=== PATIENT | male | born 1955 | race Caucasian/White ===

== ENCOUNTER → 2017-12-18 17:26 | Outpatient (CLI) | payer OTHER, SELFPAY ==
--- NOTE | 2017-12-18 16:30 | LES_PTH ---
PATIENT: KARTHIKEYAN LEDBETTER LOC: [facility] U#:[id number] AGE/SX: 70/M ROOM: RE12/18/[address]: Dr. Lew Carbajal MD : 1955 BED: DIS: SPEC #: [id number] RECD: 12/18/17 17:21 STATUS: JULIANNA CRISPIN #: [id number] RAEGAN: 12/18/17 16:[address]: Lew Carbajal DEPT: SURGICAL PATHOLOGY RECD BY: Lisa Minor ENTERED: 12/21/17 15:55 SP TYPE: Lesion OTHR DR: Dr. Dudley Calderon MD Tissues: Skin of eyelid, NOS Procedures: Surgery Specimen Level IV HEADER OPERATION: Removal of lesion LLL PRE-OP DIAGNOSIS: Increase in size, bothering eye with blinking TISSUE SUBMITTED: Lesion LLL MICROSCOPIC DIAGNOSIS Left lower eyelid lesion, biopsy: Squamous papilloma. AM:gildardo 12/22/17 MICROSCOPIC DESCRIPTION Slides are reviewed. GROSS DESCRIPTION Received in fixative is one container labeled with the patient's name and designated LLL lesion. The specimen consists of a piece of yoo-white skin measuring 0.3 x 0.2 x 0.1 cm. The specimen is totally submitted in one cassette. / SJ:gildardo 12/21/17 TC:5 CPT: 68266
== END ==
PROVIDERS: Family Provider Family Medicine; PCP Family Medicine; Visit Provider Ophthalmology
DX: D23.12 Other benign neoplasm of skin of left eyelid, including canthus (principal)
CPT/HCPCS: 88305

== ENCOUNTER → 2019-05-24 15:49 | Outpatient (CLI) | payer OTHER, SELFPAY ==
[2016-10-18 23:48] VITALS: BMI 40.7
[2019-05-24 17:44] LABS: Hematocrit 44.7 % (40-54); Hemoglobin 15.1 g/dL (13.0-16.5); Mean Corp Hgb Conc 33.8 g/dL (32-36); Mean Corpuscular Hgb 30.4 pg (27.0-32.0); Mean Corpuscular Volume 89.9 fL (80-94); Mean Platelet Vol. 10.6 fl (6.2-12.0); Platelet Count 244 K/mm3 (150-450); RBC Distribution Width CV 12.5 % (11.6-14.6); RBC Distribution Width SD 41.1 fl (35.1-43.9); Red Blood Count 4.97 M/mm3 (4.6-6.2); White Blood Count 8.3 K/mm3 (4.4-11.0)
[2019-05-24 18:36] LABS: Anion Gap 6 (5-15); BUN 14 mg/dL (7-18); BUN/Creat Ratio 14.6 RATIO (10-20); Calcium,Total 9.2 mg/dL (8.5-10.1); Chloride 105 mmol/L (98-107); Cholesterol 213 mg/dL (200); Creatinine, Serum 0.96 mg/dL (0.70-1.30); EST Glomerular Filtration Rate 84 mL/min (>60); Est Glom Filt Rate - Afr Amer 102 mL/min (>60); Glucose 107 mg/dL (74-106); High Density Lipoprotein 48 mg/dL; PSA,Total - Annual Screen 1.46 ng/mL (0.00-4.00); Potassium 4.3 mmol/L (3.5-5.1); Sodium Level 142 mmol/L (136-145); Triglycerides 110 mg/dL; Very Low Density Lipoprotein 22 mg/dL (5-40)
== END ==
PROVIDERS: Family Provider Family Medicine; PCP Family Medicine; Referring Provider Family Medicine; Visit Provider Family Medicine
DX: Z00.00 Encounter for general adult medical examination without abnormal findings (principal)
CPT/HCPCS: 36415; 80048; 80061; 84153; 85027; G0103

== ENCOUNTER → 2020-10-09 09:25 | Outpatient (CLI) | payer OTHER, SELFPAY ==
[2016-10-18 23:48] VITALS: BMI 40.7
[2020-10-09 12:10] LABS: Absolute Lymphocyte Count 1.27 X10^3/uL (0.83-4.51); Absolute Neutrophil Count 4.3 X10^3/uL (2.0-7.7); Basophil# 0.04 X10^3/uL; Basophil% 0.6 % (0-1); Eosinophil# 0.18 X10^3/uL; Eosinophils% 2.9 % (0-5); Hematocrit 45.3 % (40-54); Hemoglobin 15.8 g/dL (13.0-16.5); Lymphocyte # 1.27 X10^3/ul (4.0); Lymphocyte % 20.4 % (19-41); Mean Corp Hgb Conc 34.9 g/dL (32-36); Monocyte# 0.44 X10^3/uL; Monocyte% 7.1 % (0-10); NRBC Flagged by Analyzer 0 % (0-5); Neutrophil # 4.26 X10^3/uL (2.7-7.7); Neutrophil % 68.5 % (47-70); Platelet Count 236 K/mm3 (150-450); RBC Distribution Width CV 12.5 % (11.6-14.6); RBC Distribution Width SD 41.2 fl (35.1-43.9); Red Blood Count 5.09 M/mm3 (4.6-6.2); White Blood Count 6.2 K/mm3 (4.4-11.0)
[2020-10-09 12:36] LABS: ALB/GLOB Ratio 1.3 RATIO (0.9-2.4); AST(SGOT) 15 U/L (15-37); Alanine Aminotransfer ALT/SGPT 36 U/L (16-61); Albumin, Serum 3.9 g/dL (3.2-5.0); Alkaline Phosphatase 90 U/L (45-117); Anion Gap 8 (5-15); BUN 12 mg/dL (7-18); BUN/Creat Ratio 12.7 RATIO (10-20); Calcium,Total 8.7 mg/dL (8.5-10.1); Chloride 104 mmol/L (98-107); Cholesterol 231 mg/dL (200); Creatinine, Serum 0.94 mg/dL (0.70-1.30); EST Glomerular Filtration Rate 86 mL/min (>60); Est Glom Filt Rate - Afr Amer 104 mL/min (>60); Globulin 3.1 g/dL (2.2-4.2); Glucose 134 mg/dL (74-106); High Density Lipoprotein 49 mg/dL; PSA,Total - Annual Screen 1.62 ng/mL (0.00-4.00); Potassium 3.3 mmol/L (3.5-5.1); Sodium Level 140 mmol/L (136-145); Triglycerides 147 mg/dL; Very Low Density Lipoprotein 29 mg/dL (5-40)
== END ==
PROVIDERS: PCP Family Medicine; Referring Provider Family Medicine; Visit Provider Family Medicine
DX: I10 Essential (primary) hypertension (principal); E78.00 Pure hypercholesterolemia, unspecified
CPT/HCPCS: 36415; 80053; 80061; 84153; 85025; G0103

== ENCOUNTER → 2020-11-19 14:23 | Outpatient (CLI) | payer OTHER, SELFPAY ==
[2016-10-18 23:48] VITALS: BMI 40.7
--- NOTE | 2020-11-19 14:28 | RAD_ITS ---
STUDY: X-RAY - UNILATERAL RIBS ( RIGHT ) REASON FOR EXAM: Male, 65 years old. RIB PAIN TECHNIQUE: 4 view(s) of the ribs. COMPARISON: None. FINDINGS: No acute fracture, dislocation or osseous destruction. Moderate acromioclavicular joint arthrosis. No significant soft tissue swelling. RAD/Ribs Unil 2V No CXR IMPRESSION: Ribs intact Electronically Signed: Evens Clarke DO at 9:14 EST Tel , Service support ,
== END ==
PROVIDERS: PCP Family Medicine; Referring Provider Family Medicine; Visit Provider Family Medicine
DX: R07.81 Pleurodynia (principal)
CPT/HCPCS: 71100

== ENCOUNTER 2021-04-02 12:37 | Observation (INO) | payer OTHER, SELFPAY ==
[2021-04-02] VITALS (8 sets, daily range): BP systolic 149–190; BP diastolic 64–109; PULSE 57–99; RESP 16–85; TEMP 36.2–36.9; O2SAT 96–99; BMI 39.7
--- NOTE | 2021-04-02 13:10 | US_ITS ---
STUDY: ABDOMINAL ULTRASOUND - RIGHT UPPER QUADRANT REASON FOR VISIT: Male, 65 years old postprandial right upper quadrant pain. TECHNIQUE: Ultrasound evaluation of the right upper quadrant was performed with real-time and static fernández-scale imaging. TECHNICAL QUALITY: Limited. Examination limited due to a combination of factors including obesity and bowel gas. COMPARISON: None. FINDINGS: Liver: The liver measures 16.7 cm. There is increased echogenicity consistent with fatty infiltration. The bile ducts are within normal limits. There is hepatic color flow. The direction of portal flow is hepatopetal. There is a 3.1 cm x 3.7 cm x 3.7 cm cyst in the inferior aspect of the right lobe of the liver. Gallbladder: There is a mildly distended gallbladder. The gallbladder wall measures 2 mm. There is a positive sonographic Jernigan''s sign. There is no pericholecystic fluid. There is a solitary echogenic gallstone within the gallbladder. It measures 1.4 cm x 1.3 cm x 1 cm. It is located in the neck of the gallbladder. Common Bile Duct (C.B.D.): The common bile duct measures 3.4 mm. Pancreas: There is nonvisualization of the pancreas due to overlying bowel gas. Right Kidney: Normal size of the right kidney. The right kidney measures 11.3 cm x 5.6 cm x 5.5 cm. Normal renal cortex. The right cortex measures 1.2 cm. There is no demonstrated renal mass or cyst. There is no right hydronephrosis. US/Gallbladder IMPRESSION: Fatty infiltration of the liver. 3.1 cm x 3.7 cm x 3.7 cm cyst in the inferior aspect of the right lobe liver. Solitary gallstone in the neck of the gallbladder. Electronically Signed: Per Padilla MD at 14:50 EDT , Service support ,
--- NOTE | 2021-04-02 13:11 | EDS_ITS ---
HPI HPI - GI History of Present Illness Chief Complaint: Abd Pain Informant: patient Narrative Narrative: 65-year-old male states he got up and around 0600 in the morning and ate a sausage egg biscuit from [employer]. He went into work and at 0800 developed right upper quadrant pain that radiates slightly to the back into his right shoulder. He states that he has been nauseated. He eventually left work and went home but the pain has persisted and in fact has worsened. He notes no prior abdominal surgeries. He notes he had a small bowel movement this morning. No fever. Patient reports no recent pain with eating. [facility] Medical History (Updated 04/02/21 @ 15:[address] José Miguel Bolaños DO) BPH (benign prostatic hyperplasia) Hypercholesterolemia Hypertension Home Medications ergocalciferol (vitamin D2) [Vitamin D] 50,000 unit PO Q7D 10/19/16 [History Last Taken Unknown] metoprolol succinate 100 mg PO DAILY 10/19/16 [History Last Taken Unknown] multivitamin [Daily Multiple Vitamin] 1 ea PO DAILY 10/19/16 [History Last Taken Unknown] atorvastatin 40 mg PO DAILY 04/02/21 [History Last Taken Unknown] glucos sul [id number] [Glucosamine Chondroitin] cap PO 04/02/21 [History Last Taken Unknown] tamsulosin [Flomax] 0.4 mg PO QHS 04/02/21 [History Last Taken Unknown] Allergy/AdvReac Type Severity Reaction Status Date / Time No Known Allergies Allergy Verified 04/02/21 12:40 Surgical History History of tonsillectomy Social History (Updated 04/02/21 @ 13:[address] José Miguel Bolaños DO) Smoking Status: Never smoker substance use type: does not use ROS ROS ED Constitutional Constitutional ED: Denies chills or weight loss Eyes Eyes: Denies change in vision or diplopia ENT ENT ED: Reports rhinorrhea; Denies ear pain or sore throat Cardiovascular Cardiovascular: Denies chest pain, orthopnea, palpitations or racing heartbeat Respiratory/Chest Respiratory/Chest: Denies cough, dyspnea or orthopnea Gastrointestinal Gastrointestinal: Reports abdominal pain and nausea; Denies diarrhea or vomiting Genitourinary Genitourinary ED: Denies dysuria, hematuria or urinary frequency Musculoskeletal Musculoskeletal: Denies arthralgias or myalgias Integumentary Denies abscess or rash Neurologic Neurologic: Denies headache(s) or weakness Psychiatric Psychiatric: Denies anxiety, depression, suicidal ideation or suicidal thoughts Endocrine Endocrinology: Denies polydipsia, polyphagia or polyuria Allergic/Immunologic Allergic/Immunologic ED: Denies mouth swelling, tongue swelling or urticaria EXAM Physical Exam Const Vital Signs: 04/02/21 12:39 04/02/21 14:41 Temperature 97.9 F Temperature Source Temporal Pulse Rate 91 90 Respiratory Rate 16 16 Blood Pressure 190/109 H 149/89 H Blood Pressure Mean 136 109 Pulse Ox 98 98 Oxygen Delivery Method Room Air Positive well nourished and well developed General Appearance ED: well developed HEENT Reports normocephalic, head/scalp atraumatic and moist mucous membranes Eyes PERRL and EOMs intact bilaterally Neck no lymphadenopathy, supple and no JVD Resp normal respiratory effort and clear to auscultation bilaterally Cardio regular rate, regular rhythm and no murmurs GI normal to inspection, nondistended, normoactive bowel sounds Palpation: soft, tender RUQ and guarding Back/Spine no CVA tenderness and normal ROM Extremity normal to inspection General Extremety ED: Negative for edema General Extremity: Negative for edema Neuro oriented x3 and CN's II-XII intact bilaterally Sensorium / Orientation: alert Motor Exam: strength 5/5 throughout Psych mental status grossly normal Mood & Affect: Negative for depressed or tearful Skin no rashes or lesions noted and no wounds MDM MDM MDM Narrative Medical decision making narrative: Basic blood work is normal. Glucose 157. No obstructive pattern noted. Gallbladder ultrasound reveals a large solitary gallstone in the neck of the gallbladder. Patient has had a total of 8 mg of morphine and a milligram of Dilaudid. He is still having significant pain. I contacted general surgery Dr. Sandhu. She has come to see the patient in the emergency room. We have administered Zosyn. Plan is admission. Lab Data Attestation: I reviewed the patient's lab results. Labs: Laboratory Results - last 24 hr 04/02/21 04/02/21 12:55 12:55 WBC 8.2 RBC 5.24 Hgb 15.7 Hct 46.4 MCV 88.5 MCH 30.0 MCHC 33.8 RDW Std Deviation 39.0 RDW Coeff of Ronaldo 12.0 Plt Count 224 MPV 10.8 Immature Gran % (Auto) 0.200 Neut % (Auto) 75.7 H Lymph % (Auto) 14.5 L [place] % (Auto) 6.9 Eos % (Auto) 2.0 Baso % (Auto) 0.7 Absolute Neuts (auto) 6.2 Absolute Lymphs (auto) 1.18 Nucleated RBC % 0 Sodium 139 Potassium 3.9 Chloride 105 Carbon Dioxide 31.0 Anion Gap 3 L BUN 12 Creatinine 0.98 Estim Creat Clear Calc 74.64 Est GFR (MDRD) Af Amer 99 Est GFR (MDRD) Non-Af 81 BUN/Creatinine Ratio 12.2 Glucose 157 H Calcium 9.1 Total Bilirubin 0.60 AST 17 ALT 40 Alkaline Phosphatase 121 H Total Protein 7.1 Albumin 4.0 Globulin 3.1 Albumin/Globulin Ratio 1.3 Amylase 72 Lipase 89 Radiography Diagnostic Testing: Radiology Impression Gallbladder Ultrasound 04/02/21 13:10 IMPRESSION: Fatty infiltration of the liver. 3.1 cm x 3.7 cm x 3.7 cm cyst in the inferior aspect of the right lobe liver. Solitary gallstone in the neck of the gallbladder. Electronically Signed: Per Padilla MD at 14:50 EDT , Service support , Discharge Plan Triage Chief Complaint: Abd Pain ED Provider: José Miguel Bolaños Dx/Rx/DC Orders Clinical Impression: Cholelithiasis, Biliary colic Prescriptions: No Action multivitamin [Daily Multiple] 1 EACH tablet 1 ea PO DAILY RF: 0 metoprolol succinate 100 MG tablet 100 mg PO DAILY RF: 0 ergocalciferol (vitamin D2) [Vitamin D2] 50,000 UNIT capsule 50,000 unit PO Q7D RF: 0 atorvastatin 40 mg tablet 40 mg PO DAILY RF: 0 tamsulosin [Flomax] 0.4 mg Capsule 0.4 mg PO QHS RF: 0 Glucosamine Chondroitin 550-30-1 mg Capsule PO RF: 0 Primary Care Provider: Dudley Finney Referrals: Dudley Finney MD [Primary Care Provider] - Disposition Disposition: [facility]
[2021-04-02 13:20] LABS: Absolute Lymphocyte Count 1.18 X10^3/uL (0.83-4.51); Absolute Neutrophil Count 6.2 X10^3/uL (2.0-7.7); Basophil# 0.06 X10^3/uL; Basophil% 0.7 % (0-1); Eosinophil# 0.16 X10^3/uL; Hematocrit 46.4 % (40-54); Hemoglobin 15.7 g/dL (13.0-16.5); Lymphocyte # 1.18 X10^3/ul (0.83-4.51); Lymphocyte % 14.5 % (19-41); Mean Corp Hgb Conc 33.8 g/dL (32-36); Mean Corpuscular Volume 88.5 fL (80-94); Mean Platelet Vol. 10.8 fl (6.2-12.0); Monocyte# 0.56 X10^3/uL; Monocyte% 6.9 % (0-10); NRBC Flagged by Analyzer 0 % (0-5); Neutrophil # 6.17 X10^3/uL (2.7-7.7); Neutrophil % 75.7 % (47-70); Platelet Count 224 K/mm3 (150-450); Red Blood Count 5.24 M/mm3 (4.6-6.2); White Blood Count 8.2 K/mm3 (4.4-11.0)
[2021-04-02] MEDS: Ondansetron 4 MG/2 ML Vial IV ×3 (13:20→21:26)
[2021-04-02] MEDS: Morphine 4 MG/ML Syringe IV ×2 (13:20→14:57)
[2021-04-02] MEDS: 0.9% Normal Saline 1,000 ML 1000 ML IV (13:20)
[2021-04-02 13:35] LABS: ALB/GLOB Ratio 1.3 RATIO (0.9-2.4); AST(SGOT) 17 U/L (15-37); Alanine Aminotransfer ALT/SGPT 40 U/L (16-61); Alkaline Phosphatase 121 U/L (45-117); Amylase 72 U/L (25-115); Anion Gap 3 (5-15); BUN 12 mg/dL (7-18); BUN/Creat Ratio 12.2 RATIO (10-20); Calcium,Total 9.1 mg/dL (8.5-10.1); Chloride 105 mmol/L (98-107); Creatinine, Serum 0.98 mg/dL (0.70-1.30); EST Glomerular Filtration Rate 81 mL/min (>60); Est Glom Filt Rate - Afr Amer 99 mL/min (>60); Estimated Creatinine Clearance 74.64 ml/min; Globulin 3.1 g/dL (2.2-4.2); Glucose 157 mg/dL (74-106); Lipase 89 U/L (73-393); Potassium 3.9 mmol/L (3.5-5.1); Protein, Total 7.1 g/dL (6.4-8.2); Sodium Level 139 mmol/L (136-145)
[2021-04-02] MEDS: 0.9% Normal Saline 1,000 ML 125 ML IV (15:30)
[2021-04-02] MEDS: HYDROmorphone 1 MG/ML Syringe IV ×4 (15:34→21:12)
--- NOTE | 2021-04-02 15:47 | HP.PCM.SX_ITS ---
HPI - General General Date of Admission: 04/02/21 HPI Narrative KARTHIKEYAN LEDBETTER, is a 65 M who presents for right upper quadrant since about 830 this morning. Patient ate at about 6 AM. Patient did have nausea and dry heaves. Patient had ultrasound gallbladder which showed a gallstone in the neck of the gallbladder 2 mm wall, 3.6 mm common bile duct, white blood cell count 8.2 with the starting of the left shift. [facility] Medical History (Updated 04/02/21 @ 17:22 by Velia Charles) BPH (benign prostatic hyperplasia) Depression Hypercholesterolemia Hypertension Migraines Home Medications atorvastatin 40 mg PO DAILY 04/02/21 [History Last Taken 04/01/21] cholecalciferol (vitamin D3) 25 mcg PO DAILY 04/02/21 [History Last Taken 04/02/21] glucos sul [id number] [Glucosamine Chondroitin] 1 cap PO DAILY 04/02/21 [History Last Taken 04/02/21] metoprolol tartrate 50 mg PO BID 04/02/21 [History Last Taken 04/02/21] multivitamin 1 tab PO DAILY 04/02/21 [History Last Taken 04/02/21] tamsulosin [Flomax] 0.4 mg PO QHS 04/02/21 [History Last Taken 04/01/21] Allergy/AdvReac Type Severity Reaction Status Date / Time No Known Allergies Allergy Verified 04/02/21 12:40 Surgical History History of tonsillectomy Social History (Updated 04/02/21 @ 13:[address] José Miguel Bolaños DO) Smoking Status: Never smoker substance use type: does not use Vital Signs Vital Signs Vital Signs: 04/02/21 12:39 04/02/21 14:41 Temperature 97.9 F Temperature Source Temporal Pulse Rate 91 90 Respiratory Rate 16 16 Blood Pressure 190/109 H 149/89 H Blood Pressure Mean 136 109 Pulse Ox 98 98 Oxygen Delivery Method Room Air Weight Weight: 261 lb 11.019 oz Body Mass Index (BMI) 39.7 Physical Exam Const alert, oriented x3 and no apparent distress HEENT normocephalic and head/scalp atraumatic Resp normal respiratory effort Cardio regular rate GI soft to palpation and non-distended Palpation: tender RUQ; Negative for guarding Extremity no clubbing, cyanosis or edema Neuro CN's II-XII intact bilaterally Psych mental status grossly normal Results Lab / Micro Data Result Diagrams: 04/02/21 12:55 04/02/21 12:55 Labs: Laboratory Results - last 24 hr 04/02/21 12:55: WBC 8.2, RBC 5.24, Hgb 15.7, Hct 46.4, MCV 88.5, MCH 30.0, MCHC 33.8, RDW Std Deviation 39.0, RDW Coeff of Ronaldo 12.0, Plt Count 224, MPV 10.8, Immature Gran % (Auto) 0.200, Neut % (Auto) 75.7 H, Lymph % (Auto) 14.5 L, [place] % (Auto) 6.9, Eos % (Auto) 2.0, Baso % (Auto) 0.7, Absolute Neuts (auto) 6.2, Absolute Lymphs (auto) 1.18, Nucleated RBC % 0 04/02/21 12:55: Sodium 139, Potassium 3.9, Chloride 105, Carbon Dioxide 31.0, Anion Gap 3 L, BUN 12, Creatinine 0.98, Estim Creat Clear Calc 74.64, Est GFR (MDRD) Af Amer 99, Est GFR (MDRD) Non-Af 81, BUN/Creatinine Ratio 12.2, Glucose 157 H, Calcium 9.1, Total Bilirubin 0.60, AST 17, ALT 40, Alkaline Phosphatase 121 H, Total Protein 7.1, Albumin 4.0, Globulin 3.1, Albumin/Globulin Ratio 1.3, Amylase 72, Lipase 89 Radiology Impression Gallbladder Ultrasound 04/02/21 13:10 IMPRESSION: Fatty infiltration of the liver. 3.1 cm x 3.7 cm x 3.7 cm cyst in the inferior aspect of the right lobe liver. Solitary gallstone in the neck of the gallbladder. Electronically Signed: Per Padilla MD at 14:50 EDT , Service support , Assessment & Plan Assessment/Plan (1) Acute cholecystitis: (2) Cholelithiasis: PLAN: Admit patient okay for clears today until midnight then n.p.o. after midnight plan for laparoscopic cholecystectomy tomorrow about 9 AM. Reviewed the anatomy with the patient and discussed the procedure: laparoscopic cholecystectomy with possible cholangiograms, possible open. Review risks including but not limited to bleeding, infection, hernia, bile leak, retained gallstones requiring another procedure ERCP- Endoscopic Retrograde Cholangiopancreatography, injury to another organ (bile ducts, common bile duct, small bowel, etc.) and conversion to an open procedure. All questions were answered. Coleen Sandhu M.D. Pager: [phone] [facility] [address] [place] [address] [address] [place] [address] Office: [phone] Procedure Criteria Type of Procedure Procedure Type: Elective Elective Risks - COVID COVID Risk Discussion: The surgeon/proceduralist and patient have discussed in detail the risk of exposure to and/or potential harm posed by the COVID-19 virus with having a surgery/procedure at this time versus the risk of delaying the surgery/procedure. It is not possible to know either the risk of delaying the surgery or procedure or chance of getting an infection with perfect accuracy, but a joint decision was made between the patient and the surgeon/proceduralist to proceed at this time with the scheduled surgery/procedure as indicated on the consent form.
--- NOTE | 2021-04-02 16:25 | EKG12_ITS ---
Test Reason : Blood Pressure : / mmHG Vent. Rate : 061 BPM Atrial Rate : 061 BPM P-R Int : 216 ms QRS Dur : 090 ms QT Int : 424 ms P-R-T Axes : 052 -19 052 degrees QTc Int : 426 ms Sinus rhythm with 1st degree A-V block Septal infarct , age undetermined Abnormal ECG No previous ECGs available Confirmed by MARGO CASTELLANOS, KEILA ([id number]), editorial manager JAYDEN SON ([id number]) on 04/05/2021 10:27:08 AM Referred By: [facility] Confirmed By:KEILA ARAGON MD
--- NOTE | 2021-04-02 17:25 | RAD_ITS ---
STUDY: X-RAY CHEST REASON FOR EXAM: Male, 65 years old. Preop TECHNIQUE: Single AP portable view of the chest. COMPARISON: None. FINDINGS: The lungs are clear and expanded. Scattered calcified granulomas. There is no demonstrated pleural abnormality. Normal size heart. Normal mediastinum and josh. Normal visualized pulmonary arteries. There is atherosclerotic tortuosity of the aortic arch and descending thoracic aorta. Normal visualized thoracic spine. Normal visualized ribs, clavicles, and shoulders. There is no demonstrated abnormality of the visualized soft tissue structures of the upper abdomen. RAD/Chest 1 View IMPRESSION: No acute abnormality is seen. Electronically Signed: Per Padilla MD at 22:05 EDT , Service support ,
[2021-04-02] MEDS: hydrALAZINE 20 MG/ML Vial 10 MG IV (18:11)
[2021-04-02] MEDS: 0.9% Saline Lock 10 ML Syringe IV (19:00)
[2021-04-02] MEDS: Metoprolol Tartrate 50 MG Tablet PO (19:11)
[2021-04-02] MEDS: Tamsulosin HCl 0.4 MG Capsule PO (21:50)
[2021-04-03] VITALS (20 sets, daily range): BP systolic 122–168; BP diastolic 61–103; PULSE 63–104; RESP 12–18; TEMP 36.5–37.3; O2SAT 90–100; BMI 39.9
[2021-04-03] MEDS: HYDROmorphone 1 MG/ML Syringe IV ×3 (00:17→07:48)
[2021-04-03] MEDS: 0.9% Normal Saline 1,000 ML 125 ML IV ×4 (00:23→21:18)
[2021-04-03] MEDS: Ondansetron 4 MG/2 ML Vial IV ×3 (05:07→23:22)
[2021-04-03 06:50] LABS: Absolute Lymphocyte Count 0.61 X10^3/uL (0.83-4.51); Absolute Neutrophil Count 15.3 X10^3/uL (2.0-7.7); Basophil# 0.03 X10^3/uL; Basophil% 0.2 % (0-1); Hematocrit 45.6 % (40-54); Hemoglobin 15.5 g/dL (13.0-16.5); Lymphocyte # 0.61 X10^3/ul (0.83-4.51); Lymphocyte % 3.5 % (19-41); Mean Corpuscular Hgb 30.5 pg (27.0-32.0); Mean Corpuscular Volume 89.6 fL (80-94); Mean Platelet Vol. 10.5 fl (6.2-12.0); Monocyte# 1.15 X10^3/uL; Monocyte% 6.7 % (0-10); NRBC Flagged by Analyzer 0 % (0-5); Neutrophil # 15.33 X10^3/uL (2.7-7.7); Neutrophil % 89.1 % (47-70); Platelet Count 215 K/mm3 (150-450); RBC Distribution Width CV 12.2 % (11.6-14.6); RBC Distribution Width SD 40.6 fl (35.1-43.9); Red Blood Count 5.09 M/mm3 (4.6-6.2); White Blood Count 17.2 K/mm3 (4.4-11.0)
[2021-04-03 07:10] LABS: Anion Gap 8 (5-15); BUN 9 mg/dL (7-18); BUN/Creat Ratio 10.3 RATIO (10-20); Calcium,Total 8.4 mg/dL (8.5-10.1); Chloride 102 mmol/L (98-107); Creatinine, Serum 0.88 mg/dL (0.70-1.30); EST Glomerular Filtration Rate 93 mL/min (>60); Est Glom Filt Rate - Afr Amer 113 mL/min (>60); Estimated Creatinine Clearance 83.13 ml/min; Glucose 185 mg/dL (74-106); Potassium 3.8 mmol/L (3.5-5.1); Sodium Level 138 mmol/L (136-145)
--- NOTE | 2021-04-03 07:20 | PCM.PN.SRG ---
Subjective Subjective Patient's status of right upper quadrant pain controlled with pain meds. Patient white blood count up to 17.2. Complains of migraine this morning. Patient on IV Zosyn Objective Data Objective Data Vital Signs: Vital Signs Temp Pulse Resp BP Pulse Ox 98.8 F 104 H 18 159/103 H 98 04/03/21 03:00 04/03/21 03:00 04/03/21 03:00 04/03/21 03:00 04/03/21 03:00 Oxygen Delivery Method Room Air Weight: 262 lb 9.129 oz Body Mass Index (BMI) 39.9 Intake & Output: Intake and Output for Last 24 Hours 04/01/21 04/02/21 04/03/21 23:59 23:59 23:59 Intake Total 2160 / 2360 850 / 850 Output Total 200 / 200 Balance 2160 / 2360 650 / 650 Lab / Micro Data Result Diagrams: 04/03/21 06:11 04/03/21 06:11 Labs: Laboratory Results - last 24 hr 04/02/21 12:55: WBC 8.2, RBC 5.24, Hgb 15.7, Hct 46.4, MCV 88.5, MCH 30.0, MCHC 33.8, RDW Std Deviation 39.0, RDW Coeff of Ronaldo 12.0, Plt Count 224, MPV 10.8, Immature Gran % (Auto) 0.200, Neut % (Auto) 75.7 H, Lymph % (Auto) 14.5 L, [place] % (Auto) 6.9, Eos % (Auto) 2.0, Baso % (Auto) 0.7, Absolute Neuts (auto) 6.2, Absolute Lymphs (auto) 1.18, Nucleated RBC % 0 04/02/21 12:55: Sodium 139, Potassium 3.9, Chloride 105, Carbon Dioxide 31.0, Anion Gap 3 L, BUN 12, Creatinine 0.98, Estim Creat Clear Calc 74.64, Est GFR (MDRD) Af Amer 99, Est GFR (MDRD) Non-Af 81, BUN/Creatinine Ratio 12.2, Glucose 157 H, Calcium 9.1, Total Bilirubin 0.60, AST 17, ALT 40, Alkaline Phosphatase 121 H, Total Protein 7.1, Albumin 4.0, Globulin 3.1, Albumin/Globulin Ratio 1.3, Amylase 72, Lipase 89 07/21/21 06:11: WBC 17.2 H, RBC 5.09, Hgb 15.5, Hct 45.6, MCV 89.6, MCH 30.5, MCHC 34.0, RDW Std Deviation 40.6, RDW Coeff of Ronaldo 12.2, Plt Count 215, MPV 10.5, Immature Gran % (Auto) 0.500, Neut % (Auto) 89.1 H, Lymph % (Auto) 3.5 L, [place] % (Auto) 6.7, Eos % (Auto) 0.0, Baso % (Auto) 0.2, Absolute Neuts (auto) 15.3 H, Absolute Lymphs (auto) 0.61 L, Nucleated RBC % 0 04/03/21 06:11: Sodium 138, Potassium 3.8, Chloride 102, Carbon Dioxide 28.0, Anion Gap 8, BUN 9, Creatinine 0.88, Estim Creat Clear Calc 83.13, Est GFR (MDRD) Af Amer 113, Est GFR (MDRD) Non-Af 93, BUN/Creatinine Ratio 10.3, Glucose 185 H, Calcium 8.4 L Radiography Diagnostic Testing: Radiology Impression Gallbladder Ultrasound 04/02/21 13:10 IMPRESSION: Fatty infiltration of the liver. 3.1 cm x 3.7 cm x 3.7 cm cyst in the inferior aspect of the right lobe liver. Solitary gallstone in the neck of the gallbladder. Electronically Signed: Per Padilla MD at 14:50 EDT , Service support , Chest X-Ray 04/02/21 17:25 IMPRESSION: No acute abnormality is seen. Electronically Signed: Per Padilla MD at 22:05 EDT , Service support , Physical Exam Resp normal respiratory effort Cardio regular rate GI GI Narrative: Abdomen: Soft, nondistended, tender in the right upper quadrant, equivocal rebound Assessment & Plan Assessment/Plan (1) Acute cholecystitis: (2) Cholelithiasis: PLAN: laparoscopic cholecystectomy scheduled for today at 9 AM Coleen Sandhu M.D. Pager: [phone] [facility] [address] [place] [address], [facility], [address] [place] [address] Office: [phone]
[2021-04-03] MEDS: Acetaminophen 325 MG Tablet 650 MG PO ×2 (07:24→17:06)
[2021-04-03] MEDS: hydrALAZINE 20 MG/ML Vial 10 MG IV ×2 (07:48→17:15)
[2021-04-03] MEDS: 0.9% Saline Lock 10 ML Syringe IV ×4 (07:49→23:26)
[2021-04-03] MEDS: proCHLORPERazine 10 MG/2 ML Vial IV (07:54)
--- NOTE | 2021-04-03 08:03 | NURSING ---
PT C/O NAUSEA - TOO EARLY FOR PRN ZOFRAN. DR MAN NOTIFIED NEW ORDER RECEIVED.
--- NOTE | 2021-04-03 08:07 | NURSING ---
PT TO OR VIA BED
--- NOTE | 2021-04-03 09:00 | GALL_PTH ---
PATIENT: KARTHIKEYAN LEDBETTER LOC: [facility] U#:[id number] AGE/SX: 65/M ROOM: AL313 RE04/02/[address]: Dr. Coleen Sandhu MD : 1955 BED: 1 DIS: 04/04/2021 SPEC #: [id number] RECD: 04/03/21 11:45 STATUS: JULIANNA ROA #: [id number] RAEGAN: 04/03/21 09:[address]: Coleen Sandhu DEPT: SURGICAL PATHOLOGY RECD BY: Abigail Dougherty ENTERED: 04/03/21 12:13 SP TYPE: JAZMINE PARKER DR: Dr. Dudley Finney MD Tissues: Gallbladder, NOS Procedures: Surgery Specimen Level III HEADER OPERATION: Laparoscopic cholecystectomy with IOC PRE-OP DIAGNOSIS: Acute cholecystitis, cholelithiasis TISSUE SUBMITTED: Gallbladder MICROSCOPIC DIAGNOSIS Gallbladder, cholecystectomy: Cholesterolosis, chronic cholecystitis with focal acute cholecystitis and cholelithiasis. Benign pericystic lymph node. AM:gildardo 04/04/2021 MICROSCOPIC DESCRIPTION Slides are reviewed. GROSS DESCRIPTION Received is one container labeled with the patient's name and designated gallbladder. The specimen consists of a gallbladder measuring 8.5 cm in length and up to 4 cm in diameter. The external surface is pink-yoo, smooth and glistening for the most part. Focally it is granular, hemorrhagic and contains cautery artifact. The gallbladder contains hemorrhagic bile and one ovoid, brownish-black stone measuring 2 x 1.5 x 1.4 cm. The mucosa is bile-stained and without any mass lesions. The gallbladder wall measures up to 0.3 cm in thickness. Close to cystic duct an ovoid nodule is noted, possible lymph node, measuring 1 cm in greatest dimension. [employer] sections from the gallbladder and the cystic duct including the nodule, a possible lymph node, are submitted in one cassette. The nodule is submitted in entirety. / SJ:gildardo 04/03/21 TC:2 CPT: [id number]
--- NOTE | 2021-04-03 09:00 | RAD_ITS ---
STUDY: INTRAOPERATIVE CHOLANGIOGRAM. REASON FOR EXAM: Male, 65 years old. Cholecystectomy. FLUOROSCOPY TIME (if supplied): ( 13.3 seconds. ) minutes/seconds. A cine Loop of 13 images was submitted. TECHNIQUE: An intraoperative cholangiogram was performed by the surgeon. Imaging was submitted. COMPARISON: None. FINDINGS: The visualized intrahepatic biliary ducts are unremarkable. The common bile duct is not dilated. No intraluminal filling defect is seen. There is free flow of contrast into the duodenum. RAD/Cholangiogram/ O R,Initial IMPRESSION: Unremarkable intraoperative Cholangiogram. Electronically Signed: Per Padilla MD at 10:14 EDT , Service support ,
--- NOTE | 2021-04-03 10:25 | PCM.OPRPT ---
Report of Operation Date of Procedure: 04/03/21 Pre-Operative Diagnosis: Acute cholecystitis Post-Operative Diagnosis: Same Surgery/Procedure Performed:: Laparoscopic cholecystectomy with cholangiograms Surgeon: Coleen Sandhu financial analyst intern: Nano Rivera Type of Anesthesia: General/Supplemental Anesthesiologist: Mathieu Membreno Special Medications: Zosyn 3.375 g IV scheduled every 8 Specimen's removed: Gallbladder Estimated Blood Loss (mL): 20 cc Fluids Replaced: Per anesthesia Description of Procedure: Indications this is a 65 year-old male who developed abdominal pain/nausea/vomiting and on workup was found to have cholelithiasis, acute cholecystitis with a normal common bile duct. Laparoscopic cholecystectomy was elected. Description procedure: The patient was placed on operating table in supine position. General Anesthesia was induced. A timeout was completed verifying correct patient, procedure, site, position and special equipment prior to beginning procedure. The abdomen was prepped and draped in usual sterile fashion. An incision was made in the natural skin line above the umbilicus. The fascia was elevated and incised. The peritoneum was elevated and incised. Entry into the peritoneum was confirmed visually and no bowel was noted in the vicinity of the incision. Hoffman trocar was placed. The abdomen was insufflated with carbon dioxide to a pressure of 12-15 mmHg. Patient tolerated insufflation well. The laparoscope was then inserted and abdomen inspected. No injuries from initial trocar placement were noted. Additional trochars were then inserted in the following locations 5 mm trocar in the epigastrium and 2 more 5 mm trochars along the right costal margin. The abdomen was inspected gallbladder is noted to be inflamed and erythematous. The table is placed in reverse Trendelenburg position with the right side up. The gallbladder was inflamed and tense, aspiration needle was used to be able to grasp the dome of the gallbladder. The dome of the gallbladder was grasped with atraumatic grasper passed through the lateral port and retracted over the dome of the liver. Infundibulum was then grasped with atraumatic grasper through the midclavicular port and retracted to the right lower quadrant. This maneuver exposed Calot's triangle. The peritoneum overlying the gallbladder infundibulum was then incised and cystic duct and artery identified and circumferentially dissected. Canas catheter was used for cholangiograms. The cholangiogram showed good filling of the common bile duct into the duodenum with no filling defects, good filling of the right and left bile ducts as well. The cystic duct and artery were then doubly clipped and divided close to the gallbladder. The gallbladder then dissected from its peritoneal attachments by electrocautery. Hemostasis was checked and the gallbladder and contained stones were removed using the endoscopic retrieval bag through the umbilical port. The gallbladder is passed off table as specimen. The gallbladder fossa was copiously irrigated with saline and hemostasis obtained. There is no evidence of bleeding from the gallbladder fossa or cystic artery leakage of bile from the cystic duct stump. Secondary trochars removed under direct vision. No bleeding was noted the trocar sites. The laparoscope was withdrawn and umbilical trocar removed. The abdomen was allowed to collapse. The fascia of the 12 mm trocar was closed with a [id number] 0 Vicryl suture. The skin was closed with sutures of 4-0 Monocryl and Steri-Strips. The orogastric tube was removed and the patient was extubated. The patient tolerated procedure well and was taken to the postanesthesia care unit in stable condition. Complications None
--- NOTE | 2021-04-03 10:28 | EX.PCM.DISCH ---
Discharge Instructions Diet Discharge Diet: Light diet - advance as tolerated Activity Discharge Activity: May Not Drive (while taking narcotic pain medications.) May shower in (days): 1 Lifting Restrictions: no lifting >20 lbs x 2 wks, no strenuous exercise for 4 wks Dressing / Incision Call your doctor if your incision/area has: Continuous Slow Oozing, Sudden Increased Bleeding, Increased Pain/ Swelling, Increased Redness, Foul Smelling Discharge and Swelling at the incision site Call your doctor if you observe: Fever of 101 or Higher Remove Dressing in: 2 days Cleanse incision/area with: Soap & Water Additional Dressing/Incision Instructions:: Steri-Strips will fall off in 7 to 10 days, if they do not fall off okay to remove after 10 days. Follow Up Care Please Follow Up With: Coleen Sandhu MD When: Call the office for a follow-up appointment 2 weeks; after 5 PM and on the weekends call [phone] with any concerns. Test Results: Test results from this visit will be discussed in further detail at your follow-up appointment, if applicable. Discharge Plan Admission Admit Date/Time: 04/02/21 16:23 Attending Provider: Coleen Sandhu Primary Care Provider: Dudley Finney Discharge Orders/Prescriptions Prescriptions: New oxycodone-acetaminophen [Endocet] 5-325 mg tablet 1 - 2 tab PO Q6H PRN (Reason: pain) 4 Days Qty: 20 RF: 0 Continued atorvastatin 40 mg tablet 40 mg PO DAILY RF: 0 tamsulosin [Flomax] 0.4 mg Capsule 0.4 mg PO QHS RF: 0 Glucosamine Chondroitin 550-30-1 mg Capsule 1 cap PO DAILY RF: 0 multivitamin Tablet 1 tab PO DAILY RF: 0 metoprolol tartrate 50 mg tablet 50 mg PO BID RF: 0 cholecalciferol (vitamin D3) 25 mcg (1,000 unit) Capsule 25 mcg PO DAILY RF: 0 Referrals / Follow Up: Dudley Finney MD [Primary Care Provider] - Disposition Disposition (needs filled in before D/C Order can be placed): Home, Self Care
[2021-04-03] MEDS: Bupivacaine Mpf 0.5% 30 ML VIAL (10:29)
[2021-04-03] MEDS: Lactated Ringers 1,000 ML 100 ML IV (10:57)
--- NOTE | 2021-04-03 12:12 | PHA.DC.MC ---
Pharmacy Service has performed discharge medication reconciliation and counseling for this patient. 1. OXYCODONE/ACETAMINOPHEN 5/325MG 1-2T PO Q6H PRN PAIN The patient's discharge medication list was reviewed for discrepancies and discrepancies were resolved. Home Medications Glucosamine Chondroitin 1 cap PO DAILY 04/02/21 atorvastatin 40 mg PO DAILY 04/02/21 cholecalciferol (vitamin D3) 25 mcg PO DAILY 04/02/21 metoprolol tartrate 50 mg PO BID 04/02/21 multivitamin 1 tab PO DAILY 04/02/21 tamsulosin [Flomax] 0.4 mg PO QHS 04/02/21 oxycodone-acetaminophen [Endocet] 1 - 2 tab PO Q6H PRN 4 Days #20 tab 04/03/21 The patient was counseled on the following discharge medications and changes in medications for homegoing were reviewed. The Reason for Use, instructions for use, and potential side effects were reviewed for all new medications. The patient's questions regarding all of their medications were answered. The patient was able to verbally demonstrate an understanding of their discharge medications.
[2021-04-03] MEDS: Metoprolol Tartrate 50 MG Tablet PO ×2 (15:40→23:16)
[2021-04-03] MEDS: oxyCODONE 5 MG Tablet PO (17:06)
--- NOTE | 2021-04-03 18:55 | NURSING ---
PT C/O VERY BAD HEADACHE, NAUSEA. BP ELEVATED. PT STATES NOT FEELING WELL ENOUGH TO GO HOME TONIGHT. DR MAN NOTIFIED & ORDERS RECEIVED.
[2021-04-03] MEDS: Aspirin 325 MG Tablet PO (23:13)
[2021-04-03] MEDS: Caffeine 200 MG Tablet 400 MG PO (23:13)
[2021-04-03] MEDS: Tamsulosin HCl 0.4 MG Capsule PO (23:16)
[2021-04-04 02:02] VITALS: BP 129/77; PULSE 66; RESP 16; TEMP 36.9; O2SAT 92
[2021-04-04 04:37] VITALS: BP 160/99; PULSE 64; RESP 18; TEMP 36.9; O2SAT 94
[2021-04-04] MEDS: 0.9% Normal Saline 1,000 ML 125 ML IV (05:02)
--- NOTE | 2021-04-04 07:54 | PCM.PN.SRG ---
Subjective Subjective Patient was quite groggy still had migraine after surgery and had some nausea. Patient's migraine has resolved with the caffeine/aspirin. Patient did order a diet for this morning and is feeling better. Patient's previous right upper quadrant pain has resolved. Patient denies abdominal pain at the incisions. Objective Data Objective Data Vital Signs: Vital Signs Temp Pulse Resp BP Pulse Ox 98.5 F 64 18 160/99 H 94 04/04/21 04:37 04/04/21 04:37 04/04/21 04:37 04/04/21 04:37 04/04/21 04:37 Oxygen Flow Rate (L/min) 2 Oxygen Delivery Method Room Air Weight: 262 lb 9.129 oz Body Mass Index (BMI) 39.9 Intake & Output: Intake and Output for Last 24 Hours 04/02/21 04/03/21 04/04/21 23:59 23:59 23:59 Intake Total 2160 / 2360 4180 / 4680 1516.67 / 1516.67 Output Total 350 / 350 Balance 2160 / 2360 3830 / 4330 1516.67 / 1516.67 Lab / Micro Data Result Diagrams: 04/03/21 06:11 04/03/21 06:11 Radiography Diagnostic Testing: Radiology Impression Cholangiogram 04/03/21 09:00 IMPRESSION: Unremarkable intraoperative Cholangiogram. Electronically Signed: Per Padilla MD at 10:14 EDT , Service support , Physical Exam Resp normal respiratory effort Cardio regular rate GI GI Narrative: Abdomen: Soft, nondistended, tender near incision's dressed clean dry and intact, no peritoneal signs Assessment & Plan Assessment/Plan (1) S/P laparoscopic cholecystectomy: PLAN: Patient is doing better this morning. If he is able to tolerate diet pain continues to be controlled okay to DC home.
[2021-04-04 08:28] VITALS: BP 163/91; PULSE 67; RESP 18; TEMP 37
[2021-04-04 08:50] VITALS: PULSE 67
[2021-04-04] MEDS: Metoprolol Tartrate 50 MG Tablet PO (08:50)
--- NOTE | 2021-04-04 10:04 | NURSING ---
pt refused hygiene care because he was getting discharged same day
--- NOTE | 2021-04-04 11:14 | NURSING ---
This RN has reviewed SN charting
== END 2021-04-04 09:50 | disposition home or self-care (01) ==
LOC: ED 15:29 → MS3 16:22
PROVIDERS: Admitting Provider Surgery; Emergency Provider Emergency Medicine; PCP Family Medicine; Visit Provider Surgery
PROC: (CPT 47610; principal; 2021-04-03 08:40)
DX: K80.12 Calculus of gallbladder with acute and chronic cholecystitis without obstruction (principal); G47.30 Sleep apnea, unspecified; Z79.899 Other long term (current) drug therapy; N40.0 Benign prostatic hyperplasia without lower urinary tract symptoms; I10 Essential (primary) hypertension; E78.00 Pure hypercholesterolemia, unspecified; G43.909 Migraine, unspecified, not intractable, without status migrainosus
CPT/HCPCS: 01922; 47563; 36415; 71045; 74300; 76000; 76705; 80048; 80053; 82150; 83690; 85025; 88304; 93005; 96361; 96365; 96366; 96367; 96375; 96376; 99218; 99251; 99284; J7030; J7050; J7120; A4216; G0378; G0463; J2405

== ENCOUNTER → 2021-05-01 07:27 | Outpatient (CLI) | payer OTHER, SELFPAY ==
[2021-04-03 08:04] VITALS: BMI 39.9
[2021-05-01 10:24] LABS: Hematocrit 44.3 % (40-54); Hemoglobin 15.2 g/dL (13.0-16.5); Mean Corp Hgb Conc 34.3 g/dL (32-36); Mean Corpuscular Hgb 30.6 pg (27.0-32.0); Mean Corpuscular Volume 89.3 fL (80-94); Mean Platelet Vol. 11.1 fl (6.2-12.0); Platelet Count 237 K/mm3 (150-450); RBC Distribution Width CV 12.3 % (11.6-14.6); RBC Distribution Width SD 40.5 fl (35.1-43.9); Red Blood Count 4.96 M/mm3 (4.6-6.2); White Blood Count 6.2 K/mm3 (4.4-11.0)
[2021-05-01 10:51] LABS: ALB/GLOB Ratio 1.3 RATIO (0.9-2.4); AST(SGOT) 26 U/L (15-37); Alanine Aminotransfer ALT/SGPT 57 U/L (16-61); Albumin, Serum 3.9 g/dL (3.2-5.0); Alkaline Phosphatase 100 U/L (45-117); Anion Gap 7 (5-15); BUN 14 mg/dL (7-18); BUN/Creat Ratio 15.1 RATIO (10-20); Calcium,Total 8.9 mg/dL (8.5-10.1); Chloride 104 mmol/L (98-107); Cholesterol 132 mg/dL (200); Creatinine, Serum 0.92 mg/dL (0.70-1.30); EST Glomerular Filtration Rate 88 mL/min (>60); Est Glom Filt Rate - Afr Amer 106 mL/min (>60); Glucose 161 mg/dL (74-106); High Density Lipoprotein 47 mg/dL; Potassium 3.5 mmol/L (3.5-5.1); Protein, Total 6.9 g/dL (6.4-8.2); Sodium Level 141 mmol/L (136-145); Triglycerides 104 mg/dL; Very Low Density Lipoprotein 21 mg/dL (5-40)
[2021-05-01 10:53] LABS: Hemoglobin A1c 6.5 % (3.8-5.6)
== END ==
PROVIDERS: PCP Family Medicine; Referring Provider Family Medicine; Visit Provider Family Medicine
DX: I10 Essential (primary) hypertension (principal); R73.01 Impaired fasting glucose; E78.00 Pure hypercholesterolemia, unspecified
CPT/HCPCS: 36415; 80053; 80061; 83036; 85027

== ENCOUNTER 2021-12-19 05:58 | Outpatient (CLI) | payer OTHER, SELFPAY ==
--- NOTE | 2021-12-19 09:45 | STRESSREP_ITS ---
Stress Test Report Date: 12-19-2021 Procedure: Pharmacologic stress nuclear imaging study Indications: Chest pain Consent: Per the patient Procedure: The patient underwent pharmacologic (Regadenoson 0.4mg ) evaluation with a peak heart rate of 99 beats per minute (63%predicted maximal heart rate) and a peak blood pressure of 182/110 mmHg. The baseline ECG demonstrated sinus rhythm; poor R wave progression. The peak pharmacologic ECG demonstrated no obvious ECG changes. There were no cardiac dysrhythmias pretest, during pharmacologic infusion, or recovery. There was no complaint of chest discomfort during pharmacologic infusion or recovery. The examination was discontinued secondary to completion of protocol. Impression: 1. Pharmacologic (Regadenoson) evaluation 2. Peak pharmacologic ECG with no obvious ECG changes. 3. There were no cardiac dysrhythmias pretest, during pharmacologic infusion, or recovery. 4. Nuclear images pending Myocardial perfusion imaging study: Technique: The patient was injected with 15.0 millicuries of technetium 99m Cardiolite and subsequently rest SPECT Cardiolite nuclear imaging was obtained in the ho rizontal long, vertical long, and short axis views. The patient underwent pharmacologic (Regadenoson) evaluation with a peak heart rate of 99 beats per minute (63% percent predicted maximal heart rate) and a peak blood pressure of 182/110 mmHg. The patient was injected with 45.0 millicuries of technetium 99m Cardiolite and subsequently stress SPECT Cardiolite nuclear imaging was obtained in the horizontal long, vertical long, and short axis views. A gated Cardiolite study at peak stress was obtained. Interpretation: Rest and stress SPECT Cardiolite nuclear imaging status post realignment, n ormalization, and attenuation correction demonstrate relative uniform tracer uptake and myocardial perfusion appearing within normal limits. There is end systolic thickening and brightening. The gated Cardiolite study demonstrates myocardial thickening and inward wall motion. The reported LVEF is 62%. Impression: 1. Rest and stress SPECT Cardiolite nuclear imaging demonstrate relative unifor m tracer uptake and myocardial perfusion appearing within normal limits. 2. The gated Cardiolite study reports an LVEF of 62%. This note was generated with [email or web address] software. It may contain incorrect words, spelling, and punctuation that were not noted in checking the note before signing.
== END 2021-12-19 23:59 | disposition home or self-care (01) ==
LOC: CVS 06:01
PROVIDERS: PCP Family Medicine; Referring Provider Family Medicine; Visit Provider Family Medicine
DX: R07.9 Chest pain, unspecified (principal)
CPT/HCPCS: 78452; 93017; A9500; A4216; J2785

== ENCOUNTER → 2022-01-13 | Outpatient (CLI) | payer OTHER, SELFPAY | END | disposition home or self-care (01) | PROVIDERS: PCP Family Medicine; Visit Provider Nurse Practitioner Acute Care | DX: G47.33 Obstructive sleep apnea (adult) (pediatric) (principal) | CPT/HCPCS: 95811 ==

== ENCOUNTER → 2022-02-14 | Outpatient (CLI) | payer OTHER, SELFPAY ==
[2022-02-14 16:26] LABS: Anion Gap 5 (5-15); BUN 14 mg/dL (7-18); BUN/Creat Ratio 14.2 RATIO (10-20); Calcium,Total 9.3 mg/dL (8.5-10.1); Chloride 105 mmol/L (98-107); Creatinine, Serum 0.99 mg/dL (0.70-1.30); EST Glomerular Filtration Rate 81 mL/min (>60); Est Glom Filt Rate - Afr Amer 98 mL/min (>60); Glucose 158 mg/dL (74-106); Magnesium 2.3 mg/dL (1.6-2.6); Potassium 3.7 mmol/L (3.5-5.1); Sodium Level 140 mmol/L (136-145); Thyroid Stim Hormone (TSH) 0.66 uIU/mL (0.358-3.74)
== END | disposition home or self-care (01) ==
LOC: LAB 14:33
PROVIDERS: PCP Family Medicine; Visit Provider Internal Medicine Cardiovascular Disease
DX: I10 Essential (primary) hypertension (principal); R07.9 Chest pain, unspecified; E78.00 Pure hypercholesterolemia, unspecified
CPT/HCPCS: 36415; 80048; 83735; 84443

== ENCOUNTER → 2022-03-31 | Outpatient (CLI) | payer OTHER, SELFPAY ==
--- NOTE | 2022-03-31 06:44 | ECHOCS_ITS ---
Reason For Study: HTN Procedure This was a 2D Doppler, Color Flow transthoracic echocardiogram. The study was technically difficult. Exam performed in department. Left Ventricle Normal LV size. Mild concentric left ventricular hypertrophy. Left ventricular systolic function is normal. The estimated ejection fraction is 60 %. Stage 2 diastolic dysfunction. No regional wall motion abnormalities noted. Right Ventricle Normal RV size. Normal systolic function. Atria The left atrium is mildly enlarged. Normal right atrium. Mitral Valve Normal mitral valve. Tricuspid Valve Normal tricuspid valve. Aortic Valve Normal aortic valve. Trisinus/trileaflet aortic valve. Pulmonic Valve The pulmonic valve is not well visualized. Great Vessels Mildly dilated aortic root. The pulmonary artery is normal size. Normal inferior vena cava. Pericardium/Pleural No pericardial effusion. Medication 22 gauge I.V. with prn adaptor inserted into right arm. Diluted definity 3ml given slow IV push to enhance endocardial definition. MMode/2D Measurements & Calculations LVIDd: 4.6 cm IVSd: 1.4 cm Ao root diam: 3.9 cm LVIDs: 2.6 cm LVPWd: 1.2 cm RVDd: 4.3 cm FS: 42.6 % LAV(MOD-sp2): 66.2 ml LVAd ap4: 31.3 cm2 SV(MOD-sp4): 60.2 ml LVLd ap4: 7.6 cm EDV(MOD-sp4): 106.8 ml EDV(sp4-el): 109.7 ml LVAs ap4: 20.1 cm2 LVLs ap4: 7.1 cm ESV(MOD-sp4): 46.6 ml ESV(sp4-el): 48.0 ml EF(MOD-sp4): 56.4 % EF(sp4-el): 56.3 % SV(sp4-el): 61.8 ml LA A4 area: 22.2 cm2 LA dimension(2D): 4.5 cm RA A4 area: 12.5 cm2 Time Measurements MV dec time: 0.17 sec Doppler Measurements & Calculations MV E max talha: 98.1 cm/sec Lat Peak E' Talha: 11.7 cm/sec Med Peak E' Talha: 10.9 cm/sec MV A max talha: 63.1 cm/sec E/E' lat: 8.4 E/E' med: 9.0 MV E/A: 1.6 MV dec slope: 581.1 cm/sec2 Ao V2 max: 165.1 cm/sec LV V1 max: 131.6 cm/sec Ao max P.9 mmHg LV V1 max P.9 mmHg Ao V2 mean: 107.5 cm/sec LV V1 mean P.6 mmHg Ao mean P.5 mmHg LV V1 mean: 89.2 cm/sec Ao V2 VTI: 34.0 cm LV V1 VTI: 27.7 cm PA V2 max: 135.8 cm/sec PA V2 mean: 94.6 cm/sec ECHO/Echo Complete W/ Contrast Interpretation Summary Normal LV size. Left ventricular systolic function is normal. The estimated ejection fraction is 60 %. Mild concentric left ventricular hypertrophy. Stage 2 diastolic dysfunction. Contrast injection was performed. Ordering Physician: Gene Posey Referring Physician: Aiden Chappell Performed By: Jailyn Alves RDCS
--- NOTE | 2022-03-31 08:25 | PFTCOMP ---
COMPLETE PULMONARY FUNCTION TEST INTERPRETATION Brief HPI: Patient is a 66-year-old male, currently under the care of Deann Jett, who presents to [facility] [place] for complete pulmonary function tests secondary to diagnosis of cough. Respiratory therapist reports good effort and reproducible results. Interpretation: Forced expiration spirometry shows no large airways obstructive ventilatory defect with an FEV1 of 95% predicted. There is no significant bronchodilator response by strict ATS criteria. Spirograms are of good quality and plateau normally. The respiratory flow volume loop shows a normal pattern. Lung volumes by body plethysmography show a normal total lung capacity at 6.84 L, 112% predicted. All other lung volumes are within normal limits. Diffusion capacity by carbon monoxide is normal at 97% predicted. The airway resistance is normal. No previous pulmonary function tests were available for review. Impression: These pulmonary function tests are within normal limits
== END | disposition home or self-care (01) ==
LOC: PSN 06:42
PROVIDERS: PCP Family Medicine; Referring Provider Internal Medicine Critical Care Medicine; Visit Provider Internal Medicine Critical Care Medicine
DX: I10 Essential (primary) hypertension (principal); R05.9 Cough, unspecified
CPT/HCPCS: 93306; 94060; 94726; 94729; Q9957; A4216; C8929

== ENCOUNTER → 2022-04-14 | Outpatient (CLI) | payer OTHER, SELFPAY ==
[2022-04-14 13:55] LABS: Anion Gap 4 (5-15); BUN 14 mg/dL (7-18); BUN/Creat Ratio 14.5 RATIO (10-20); Calcium,Total 9.7 mg/dL (8.5-10.1); Chloride 100 mmol/L (98-107); Creatinine, Serum 0.96 mg/dL (0.70-1.30); EST Glomerular Filtration Rate 83 mL/min (>60); Est Glom Filt Rate - Afr Amer 101 mL/min (>60); Glucose 171 mg/dL (74-106); Potassium 3.4 mmol/L (3.5-5.1); Sodium Level 138 mmol/L (136-145)
== END | disposition home or self-care (01) ==
LOC: LAB 12:09
PROVIDERS: PCP Family Medicine; Referring Provider Physician Assistant Medical; Visit Provider Physician Assistant Medical
DX: I10 Essential (primary) hypertension (principal); E78.00 Pure hypercholesterolemia, unspecified; G47.33 Obstructive sleep apnea (adult) (pediatric); Z99.89 Dependence on other enabling machines and devices
CPT/HCPCS: 36415; 80048

== ENCOUNTER → 2022-06-13 | Outpatient (CLI) | payer OTHER, SELFPAY ==
[2022-06-13 18:09] LABS: Anion Gap 7 (5-15); BUN 19 mg/dL (7-18); Calcium,Total 9.9 mg/dL (8.5-10.1); Chloride 103 mmol/L (98-107); Creatinine, Serum 1.27 mg/dL (0.70-1.30); EST Glomerular Filtration Rate 61 mL/min (>60); Est Glom Filt Rate - Afr Amer 73 mL/min (>60); Glucose 141 mg/dL (74-106); Potassium 3.8 mmol/L (3.5-5.1); Sodium Level 141 mmol/L (136-145)
== END | disposition home or self-care (01) ==
LOC: LAB 17:16
PROVIDERS: PCP Family Medicine; Referring Provider Physician Assistant Medical; Visit Provider Physician Assistant Medical
DX: I10 Essential (primary) hypertension (principal)
CPT/HCPCS: 36415; 80048

== ENCOUNTER → 2022-07-22 | Outpatient (CLI) | payer OTHER, SELFPAY ==
[2022-07-22 17:51] LABS: BNP,B-Type NATRIURETIC PEPTIDE 14.1 pg/mL (0-100)
[2022-07-22 18:01] LABS: Anion Gap 5 (5-15); BUN 17 mg/dL (7-18); BUN/Creat Ratio 15.7 RATIO (10-20); Calcium,Total 9.2 mg/dL (8.5-10.1); Chloride 103 mmol/L (98-107); Creatinine, Serum 1.08 mg/dL (0.70-1.30); EST Glomerular Filtration Rate 73 mL/min (>60); Est Glom Filt Rate - Afr Amer 88 mL/min (>60); Glucose 125 mg/dL (74-106); Potassium 3.7 mmol/L (3.5-5.1); Sodium Level 139 mmol/L (136-145); Thyroid Stim Hormone (TSH) 1.04 uIU/mL (0.358-3.74)
[2022-07-28 12:07] LABS: Testosterone, Free 4.95 ng/dL (5.00-21.00)
[2022-07-28 17:41] LABS: Testosterone, % Free 2.88 % (1.50-4.20); Testosterone, Total 172 ng/dL (264-916)
== END | disposition home or self-care (01) ==
LOC: LAB 16:33
PROVIDERS: PCP Family Medicine; Visit Provider Nurse Practitioner Family
DX: R06.02 Shortness of breath (principal); R53.83 Other fatigue
CPT/HCPCS: 36415; 80048; 83880; 84402; 84403; 84443

== ENCOUNTER → 2023-02-19 | Outpatient (CLI) | payer OTHER, SELFPAY ==
[2023-02-19 10:58] LABS: Anion Gap 6 (5-15); BUN 20 mg/dL (7-18); BUN/Creat Ratio 14.9 RATIO (10-20); Calcium,Total 9.5 mg/dL (8.5-10.1); Chloride 106 mmol/L (98-107); Creatinine, Serum 1.34 mg/dL (0.70-1.30); EST Glomerular Filtration Rate 57 mL/min (>60); Est Glom Filt Rate - Afr Amer 69 mL/min (>60); Glucose 128 mg/dL (74-106); Potassium 3.6 mmol/L (3.5-5.1); Sodium Level 138 mmol/L (136-145)
== END | disposition home or self-care (01) ==
LOC: MTLAB 07:15
PROVIDERS: PCP Family Medicine; Referring Provider Nurse Practitioner Family; Visit Provider Nurse Practitioner Family
DX: I10 Essential (primary) hypertension (principal); R53.83 Other fatigue
CPT/HCPCS: 36415; 80048

== ENCOUNTER → 2023-09-01 | Outpatient (CLI) | payer OTHER, SELFPAY ==
[2023-09-01 15:46] LABS: ALB/GLOB Ratio 1.1 RATIO (0.9-2.4); AST(SGOT) 16 U/L (15-37); Alanine Aminotransfer ALT/SGPT 30 U/L (16-61); Albumin, Serum 3.9 g/dL (3.2-5.0); Alkaline Phosphatase 86 U/L (45-117); Anion Gap 6 (5-15); BUN 21 mg/dL (7-18); BUN/Creat Ratio 17.1 RATIO (10-20); Calcium,Total 9.8 mg/dL (8.5-10.1); Chloride 104 mmol/L (98-107); Cholesterol 192 mg/dL (200); Creatinine, Serum 1.23 mg/dL (0.70-1.30); EST Glomerular Filtration Rate 63 mL/min (>60); Est Glom Filt Rate - Afr Amer 76 mL/min (>60); Globulin 3.4 g/dL (2.2-4.2); Glucose 116 mg/dL (74-106); High Density Lipoprotein 44 mg/dL; PSA,Total - Annual Screen 2.19 ng/mL (0.00-4.00); Protein, Total 7.3 g/dL (6.4-8.2); Sodium Level 137 mmol/L (136-145); Triglycerides 90 mg/dL; Very Low Density Lipoprotein 18 mg/dL (5-40)
== END | disposition home or self-care (01) ==
LOC: MFPLAB 11:39
PROVIDERS: PCP Family Medicine; Visit Provider Family Medicine
DX: E11.69 Type 2 diabetes mellitus with other specified complication (principal); N52.9 Male erectile dysfunction, unspecified
CPT/HCPCS: 36415; 80053; 80061; 84153; G0103

== ENCOUNTER → 2024-01-05 | Outpatient (CLI) | payer OTHER, SELFPAY ==
--- NOTE | 2024-01-05 17:08 | RAD_ITS ---
STUDY: X-RAY - LUMBAR SPINE REASON FOR EXAM: Male, 68 years old. BACK PAIN TECHNIQUE: 4 view(s) of the lumbar spine were obtained. COMPARISON: 07/11/2014 FINDINGS: Normal lumbar lordosis. There is no substantial scoliosis. There is a normal alignment of the vertebrae. Mild loss of height and concavity the superior endplate of the L1 and L2 vertebral bodies consistent compression fractures. These may be acute, subacute, or chronic and clinical correlation MRI would be useful. Normal disc space heights. There is multilevel facet hypertrophy in the lower lumbar spine. The soft tissue structures are unremarkable. RAD/L/S Spine Min 4 Views IMPRESSION: 1. Acute mild compression fractures of L1 and L2 which may be acute, subacute, or chronic and clinical correlation MRI may be useful. 2. Degenerative disc disease. Electronically Signed: You Nicole MD at 0:09 EDT ,
== END | disposition home or self-care (01) ==
LOC: MTRAD 17:07
PROVIDERS: PCP Family Medicine; Referring Provider Nurse Practitioner Family; Visit Provider Nurse Practitioner Family
DX: M54.9 Dorsalgia, unspecified (principal); G89.29 Other chronic pain
CPT/HCPCS: 72110

== ENCOUNTER → 2024-03-07 | Outpatient (CLI) | payer OTHER, SELFPAY ==
--- NOTE | 2024-03-07 15:35 | MRI_ITS ---
STUDY: MRI LUMBAR SPINE WITH AND WITHOUT CONTRAST REASON FOR EXAM: Male, 68 years old. Concern for lumbar spine fracture. TECHNIQUE: Standardized fat and water weighted pulse sequences were obtained in the sagittal and axial planes. IV 23 ml Clariscan was administered for the contrast portion of the examination. COMPARISON: None FINDINGS: T10-T11: (Sagittal only). Normal visualized portion of the T10 inferior endplate. Slight anterior wedging of T11 superior endplate is presumably from remote injury. Mild disc space height narrowing. No ventral extradural defect. Normal central canal. Bilateral intervertebral neural foramina are not included. T11-T12: (Sagittal only). Normal endplates. Normal disc height, hydration and morphology. Normal central canal and bilateral intervertebral neural foramina. T12-L1: Normal T12 inferior endplate. Mild anterior wedge compression fracture across the upper L1 vertebral body with abnormal bone edema across the fracture line. This is recent fracture. The bone edema does not involve the pedicles and posterior osseous elements. This accounts for the increased central disc space height. No significant facet arthropathy. Normal central canal and bilateral lateral recesses. Normal bilateral intervertebral neural foramina. Normal lumbar lordosis. There is no substantial scoliosis. Normal conus medullaris that terminates at the T12-L1 disc space level. L1-2: Normal L1 inferior endplate. Mild anterior wedge compression fracture across the upper anterior L2 vertebral body with abnormal bone marrow edema across the fracture line. This accounts for the increased anterior disc space height. Minimal ventral extradural defect due to tiny posterior bulging annulus. Normal facet joints. Normal central canal and bilateral lateral recesses. Normal bilateral intervertebral neural foramina. Small right renal cyst is visible at this level. L2-3: Normal endplates. Normal disc height, hydration and morphology. Normal bilateral facet joints. Normal central canal and bilateral lateral recesses. Normal bilateral intervertebral neural foramina. L3-4: Normal endplates. Normal disc height, hydration and morphology. Normal bilateral facet joints. Normal central canal and bilateral lateral recesses. Normal bilateral intervertebral neural foramina. L4-5: Normal endplates. Normal disc height, hydration and morphology. Mild degenerative anterolisthesis of L4 on L5. Mild to moderate bilateral degenerative facet arthropathy. Moderate central canal stenosis with an AP canal diameter 7 mm. Normal bilateral lateral recesses. Normal bilateral intervertebral neural foramina. L5-S1: Normal endplates. Normal disc height and hydration. Midline ventral extradural defect may represent small disc protrusion. Moderate right degenerative facet arthropathy. Normal left facet joint. Normal central canal and bilateral lateral recesses. Normal left intervertebral neural foramen. Mild stenosis of the right intervertebral neural foramen due to osteophytic encroachment coming from the right S1 superior articular facet. Normal visualized sacral ala. Normal visualized paraspinous soft tissue structures. Following IV contrast administration, there is contrast enhancement across the fracture lines of the upper L1 and L2 vertebral bodies. No abnormal enhancing lesions intradurally and extradurally. MRI/Spine Lumbar W/WO Contrast IMPRESSION: 1. Recent anterior wedge compression fractures of the upper L1 and upper L2 vertebral bodies with contrast enhancement across the fracture lines. If there is debilitating back pain referrable to these sites, they are visible for kyphoplasty. 2. Small L5-S1 posterior midline disc protrusion but no associated spinal stenosis or nerve root displacement. 3. No MRI evidence of lumbar extruded disc fragment. Electronically Signed: Donta Mancera MD at 10:33 EDT ,
[2024-03-07 16:06] LABS: CREATININE FINGERSTICK 1.4 mg/dL (0.70-1.30)
== END | disposition home or self-care (01) ==
PROVIDERS: PCP Family Medicine; Referring Provider Family Medicine; Visit Provider Family Medicine
DX: S32.009A Unspecified fracture of unspecified lumbar vertebra, initial encounter for closed fracture (principal)
CPT/HCPCS: 72158; A9575

== ENCOUNTER 2024-03-10 17:00 | Outpatient (RCR) | payer OTHER, SELFPAY ==
--- NOTE | 2024-02-15 17:30 | HP.PTEVAL ---
Patient's Visit Information Visit Information Visit Information: KARTHIKEYAN LEDBETTER is a 68 year old M referred to Physical Therapy by Dr. Matthew Liu MD with a diagnosis of WEDGE COMPRESSION FRACTURE OF FIRST LUMBAR VERTEBRA. Date of Evaluation: 02/15/24 Physical Therapist: Linwood Clemente, PT, Cert MDT, OCS Visit Plan Frequency: 2x /Week Duration: 4 Weeks Plan: l1-2 COMPRESSION FRACTURE SUBACUTE PT INTERVENTIONS DLS ,POSTURAL EX'S , BLE STRENGTHENING QUADS/HAMS/HIP ,ACTIVITY MODIFICATIONS AND FUNCTIONAL STRENGTHENING Subjective Subjective: This 68 y/o male presents to physical therapy with lumbar compression fracture. Patient reports about 5 weeks on knees trying to lean forward to lift a piece of machine. Patient has had compression fractures for many years 1978. Patient recently had more pain seen DR Liu and had MRI showed compression fracture L1 ;L2 and HNP . DR Liu recommended PT and possible pain management. Seen pain management and may need another MRI. Patient plans to get Bone density scan . Location of pain symmetrical lumbar described as ache. Pain aggravating walking/standing affects,bending affects ADLS and job demands. Alleviating factors rest. Coughing/sneezing+ ,Bowel/bladder -. Denies paresthesia/tingling -. Patient sleeping good. Patient pain affects QOL and job demands /housework tasks. Patient goals to decrease pain. SOCIAL: VOCATION: [employer] [facility] Pain Bilateral Back: Pain Intensity (Out of 10): 3 Pain Intensity Range: 10 Objective Objective: POSTURE: mild forward posture PALAPTION: unremarkable NEURO: denies paresthesia/tingling ,reflexes L3-4 ,L4-5,L5-S1 1/3 GAIT: ambulates with reciprocal pattern MMT: ( peak force) quads right 17.9 ,left 22.9 ,hamstrings 13.6 , left 25.5 ,hip flexion/abduction right 0 ,left 20.9\ LUMBAR ROM: flexion min loss,extension mod/severe loss pain ,side glides mod loss FLEXABILITY: hamstrings min tight Special Tests L/S Slump test left side: Negative L/S Slump test right side: Negative L/S Left Straight Leg Raise: Negative L/S Right Straight Leg Raise: Negative Lumbar Standing: Flexion - Mechanical Response: No effect Lumbar Standing: Flexion - Symptoms During Testing: Increases Lumbar Standing: Flexion - Symptoms After Testing: No worse Lumbar Standing: Extension - Mechanical Response: No effect Lumbar Standing: Extension - Symptoms During Testing: Increases Lumbar Standing: Extension - Symptoms After Testing: Worse Lumbar Standing: Right Side Glides - Mechanical Response: No effect Lumbar Standing: Right Side [place] - Symptoms During Testing: Increases Lumbar Standing: Right Side [place] - Symptoms After Testing: Worse Lumbar Standing: Left Side [place] - Mechanical Response: No effect Lumbar Standing: Left Side [place] - Symptoms During Testing: No effect Lumbar Standing: Left Side [place] - Symptoms After Testing: No effect Balance/Special Test Scores Oswestry Low Back Score: 27 Goals Goal 1:: Patient to be I with HEP for back Goal Time Frame: 4-6 Weeks Goal 2:: Patient improve posture/body mechanics 80% of the time to manage LBP Goal Time Frame: 4-6 Weeks Goal 3:: Patient to demonstrate 50% improvement with less pain and improved function Goal Time Frame: 4-6 Weeks Goal 4:: Patient to improve back oswestry score by 5 points to improve QOL and function Goal Time Frame: 4-6 Weeks Goal 5:: Patient to improve lumbar ROM for function of recovery for ADLS Goal Time Frame: 4-6 Weeks Goal 6:: Patient to improve peak force of quads/hams/hip by 5-10 # to improve function and walking Rehabilitation Potential Physical Therapy Diagnosis: This patient has lumbar pain from compression fracture and has HNP lumbar with decrease ROM ,pain with motion testing flexion and extension, weakness BLE left worse and poor strength right hip thus benefit from skilled PT Rehabilitation Potential: Good Anticipated Interventions Patient/Client Instruction: Educate patient on: Condition and Plan of Care For the Purpose of:: To decrease pain, To increase ROM, To improve muscle performance and motor function, To improve ability to perform ADL's, To increase tolerance to activity/condition/position, To improve ability of physical actions for home/community/work/leisure, To improve gait and locomotor functions, To improve health of tissue, To decrease soft tissue restriction, To increase flexibility/ROM, To improve balance, To reduce risk of recurrence and To prevent re-injury Therapeutic Exercise to Include: Strength training, Endurance training, Balance training, Body mechanics, Postural training, Flexibilty training and Dynamic Lumbar Stabilization Comment: BLE ESPECIALLY HIPS For the Purpose of:: To decrease pain, To increase ROM, To improve muscle performance and motor function, To improve ability to perform ADL's, To increase tolerance to activity/condition/position, To improve ability of physical actions for home/community/work/leisure, To improve gait and locomotor functions, To improve health of tissue, To decrease soft tissue restriction, To increase flexibility/ROM, To improve endurance, To improve balance and To improve tolerance to ADL's TENS: Yes IF ES: Yes Thermo therapy (hot pack): Yes Ultrasound (thermal/non thermal): Yes For the Purpose of:: To decrease pain, To increase ROM, To improve nutrient delivery to tissue, To increase oxygenation perfusion, To improve health of tissue and To decrease soft tissue restriction Text: Thank you for the opportunity to evaluate your patient. For Medicare and Medicare HMO plans, please review the plan of care and approve it. It will need to be FAXED BACK to us at [phone] for Medicare purposes. For Medicare only, by signing this I certify the plan of care. Please let me know if there are questions or concerns regarding this plan of care. Physician Signature: Date:
--- NOTE | 2024-03-10 17:32 | HP.PTDCSUM ---
Discharge Summary D/C summary: It has been my pleasure to treat KARTHIKEYAN LEDBETTER referred by Dr. Matthew Liu MD, with the diagnosis of WEDGE COMPRESSION FRACTURE OF FIRST LUMBAR VERTEBRA for a total of 7 visit(s). Discharge Date: 03/10/24 Please see the following information for a summary of their discharge status. Subjective Subjective: Doing good Seen Pain management Pain when lifting heavy sharp Constant Pain Bilateral Back: Pain Intensity (Out of 10): 3 Overall Improvement % Improvement: 50 Objective Objective/Function: OSTURE: mild forward posture PALAPTION: unremarkable NEURO: denies paresthesia/tingling ,reflexes L3-4 ,L4-5,L5-S1 1/3 GAIT: ambulates with reciprocal pattern MMT: ( peak force) quads right 35..9 ,left 53..9 ,hamstrings 33.6 , left 25.5 ,hip flexion 23.4 abduction right 12.1 ,left 20.9 LUMBAR ROM: flexion min loss,extension mod/severe loss pain ,side glides mod loss Goals Goal 1:: Patient to be I with HEP for back Goal Progress: Goal Met Goal 2:: Patient improve posture/body mechanics 80% of the time to manage LBP Goal Progress: Goal Met Goal 3:: Patient to demonstrate 50% improvement with less pain and improved function Goal Progress: Goal Met Goal 4:: Patient to improve back oswestry score by 5 points to improve QOL and function Goal Progress: Goal Met Goal 5:: Patient to improve lumbar ROM for function of recovery for ADLS Goal Progress: Goal Met Goal 6:: Patient to improve peak force of quads/hams/hip by 5-10 # to improve function and walking Goal Progress: Goal Met Plan Plan: D/C TO HEP D/C Information Discharge Comments: HEP d/c sentence: If there are questions or concerns regarding this patient's physical therapy, please feel free to call me at [phone]. Thank you for the referral of this patient. Sincerely, Linwood Clemente, PT, Cert MDT, OCS Balance/Gait/Functional tests Balance/Special Test Scores Oswestry Low Back Score: 7 Improvement % Improvement: 50
== END 2024-03-10 19:00 | disposition home or self-care (01) ==
LOC: PT 17:00
PROVIDERS: PCP Family Medicine; Referring Provider Orthopaedic Surgery Orthopaedic Surgery of the Spine; Visit Provider Orthopaedic Surgery Orthopaedic Surgery of the Spine
DX: S32.010D Wedge compression fracture of first lumbar vertebra, subsequent encounter for fracture with routine healing (principal)
CPT/HCPCS: 97110; 97162; 97530

== ENCOUNTER → 2024-04-06 | Outpatient (CLI) | payer OTHER, SELFPAY ==
--- NOTE | 2024-04-06 10:25 | BON_PTH ---
PATIENT: KARTHIKEYAN LEDBETTER LOC: [facility] U#:[id number] AGE/SX: 68/M ROOM: RE04/06/[address]: Dr. Justice Mccarthy MD : 1955 BED: DIS: 04/06/2024 SPEC #: [id number] RECD: 04/06/24 13:00 STATUS: JULIANNA ROA #: [id number] RAEGAN: 04/06/24 10:[address]: Justice Mccarthy DEPT: SURGICAL PATHOLOGY RECD BY: Bogdan Chapman ENTERED: 04/07/24 08:12 SP TYPE: Bone OTHR DR: Dr. Augustina Mcfarland MD Tissues: A - Vertebra, NOS B - Vertebra, NOS Procedures: Decalcification bone/plaque Surgery Specimen Level IV HEADER OPERATION: Kyphoplasty L1 PRE-OP DIAGNOSIS: Fracture , spontaneous L1 TISSUE SUBMITTED: A- L1, B-L2 MICROSCOPIC DIAGNOSIS A. L1 vertebral body, bone biopsy: Fragments of bone marrow with trilineage hematopoiesis. No evidence of malignancy. B. L2 vertebral body, bone biopsy: Fragments of bone marrow with trilineage hematopoiesis. No evidence of malignancy. / 04/08/2024 MICROSCOPIC DESCRIPTION Slides are reviewed. GROSS DESCRIPTION A. Received in fixative is one container labeled with the patient's name and designated L1 fracture. The specimen consists of multiple fragments of blood clot mixed with fragments of bone that in aggregate measure 1.0 x 1.0 x <0.1 cm. The specimen is totally submitted in one cassette after decalcification. B. Received in fixative is one container labeled with the patient's name and designated L2 fracture. The specimen consists of multiple fragments of blood clot mixed with fragments of bone that in aggregate measure 1.0 x 1.0. x <0.1cm. The specimen is totally submitted in one cassette after decalcification. / 04/07/2024 TC:5 CPT:[id number]
== END | disposition home or self-care (01) ==
PROVIDERS: PCP Family Medicine; Referring Provider Anesthesiology; Visit Provider Anesthesiology
DX: S32.028A Other fracture of second lumbar vertebra, initial encounter for closed fracture (principal)
CPT/HCPCS: 88305; 88311

== ENCOUNTER → 2024-05-04 | Outpatient (CLI) | payer OTHER, SELFPAY ==
--- NOTE | 2024-05-04 15:44 | BD_ITS ---
STUDY: DUAL ENERGY X-RAY ABSORPTIOMETRY / DXA REASON FOR EXAM: Male, 69 years old. S32.009A TECHNIQUE: Bone Mineral Density (BMD) measurements of lumbar spine and bilateral hips were obtained. COMPARISON: None. FINDINGS: Lumbar Spine (L1-L4): g/cm2 (0.950) / T-score (-1.6) / Z-score (-0.8) Findings are suggestive of osteopenia with a moderate fracture risk. Left Femur Total: g/cm2 (0.852) / T-score (-1.2) / Z-score (-0.6) Left Femoral Neck: g/cm2 (0.663) / T-score (-2.0) / Z-score (-0.9) Right Femur Total: g/cm2 (0.853) / T-score (-1.2) / Z-score (-0.6) Right Femoral Neck: g/cm2 (0.695) / T-score (-1.7) / Z-score (-0.6) BD/Dexa Bone Density Study IMPRESSION: The patient is considered osteopenic as outlined below according to World Reji Organization (WHO) criteria with a moderate fracture risk. Reference Information: The T-score is the number of standard deviations above or below the standard which is normal for young adults at their peak bone mineral density. The World Health Organization (WHO) interprets the T-scores as follows: Above -1 Normal bone density Between -1 and -2.5 Osteopenia Equal to / or below -2.5 Osteoporosis As a practical clinical guideline, osteopenia may be graded as follows: Mild -1 through -1.5 Moderate -1.6 through -2.0 Severe -2.1 through -2.4 The Z-score is the number of standard deviations above or below age-matched controls. A Z-score of less than -1.5 would be considered abnormal. References: 1. NIH Osteoporosis and Related Bone Diseases www osteo.org 2. International Society for Clinical Densitometry www iscd.org 3. National Osteoporosis Foundation www nof.org Electronically Signed: Per Padilla MD at 8:32 EDT ,
== END | disposition home or self-care (01) ==
LOC: OPBD 15:31
PROVIDERS: PCP Family Medicine; Referring Provider Family Medicine; Visit Provider Family Medicine
DX: S32.009A Unspecified fracture of unspecified lumbar vertebra, initial encounter for closed fracture (principal)
CPT/HCPCS: 77080

== ENCOUNTER → 2024-09-28 | Outpatient (CLI) | payer OTHER, SELFPAY ==
[2024-09-28 10:06] LABS: Absolute Neutrophil Count 5.4 X10^3/uL (2.0-7.7); Basophil# 0.06 X10^3/uL; Basophil% 0.7 % (0-1); Eosinophil# 0.24 X10^3/uL; Hematocrit 40.9 % (40-54); Hemoglobin 14.1 g/dL (13.0-16.5); Lymphocyte % 19.8 % (19-41); Mean Corp Hgb Conc 34.5 g/dL (32-36); Mean Corpuscular Hgb 31.5 pg (27.0-32.0); Mean Corpuscular Volume 91.5 fL (80-94); Monocyte# 0.67 X10^3/uL; Monocyte% 8.3 % (0-10); NRBC Flagged by Analyzer 0 % (0-5); Neutrophil # 5.44 X10^3/uL (2.7-7.7); Neutrophil % 67.5 % (47-70); Platelet Count 240 K/mm3 (150-450); RBC Distribution Width CV 12.5 % (11.6-14.6); RBC Distribution Width SD 41.6 fl (35.1-43.9); Red Blood Count 4.47 M/mm3 (4.6-6.2); White Blood Count 8.1 K/mm3 (4.4-11.0)
[2024-09-28 10:42] LABS: ALB/GLOB Ratio 1.1 RATIO (0.9-2.4); AST(SGOT) 14 U/L (15-37); Alanine Aminotransfer ALT/SGPT 31 U/L (16-61); Albumin, Serum 3.7 g/dL (3.2-5.0); Alkaline Phosphatase 86 U/L (45-117); Anion Gap 6 (5-15); BUN 25 mg/dL (7-18); BUN/Creat Ratio 17.1 RATIO (10-20); Calcium,Total 10.3 mg/dL (8.5-10.1); Chloride 102 mmol/L (98-107); Cholesterol 202 mg/dL (200); Creatinine, Serum 1.46 mg/dL (0.70-1.30); EST Glomerular Filtration Rate 51 mL/min (>60); Est Glom Filt Rate - Afr Amer 62 mL/min (>60); Globulin 3.3 g/dL (2.2-4.2); Glucose 125 mg/dL (74-106); High Density Lipoprotein 50 mg/dL; Sodium Level 137 mmol/L (136-145); Triglycerides 145 mg/dL; Very Low Density Lipoprotein 29 mg/dL (5-40)
[2024-09-28 12:29] LABS: Hemoglobin A1c 6.1 % (3.8-5.6)
== END | disposition home or self-care (01) ==
LOC: MTLAB 08:09
PROVIDERS: PCP Family Medicine; Referring Provider Family Medicine; Visit Provider Family Medicine
DX: Z00.00 Encounter for general adult medical examination without abnormal findings (principal)
CPT/HCPCS: 36415; 80053; 80061; 83036; 84153; 85025; G0103

== ENCOUNTER → 2024-10-07 | Outpatient (CLI) | payer OTHER, SELFPAY ==
--- NOTE | 2024-10-07 14:37 | CDU_ITS ---
Reason For Study: Stenosis Rt. Velocities/BP Lt. Velocities/BP Prox CCA 120/21 cm/sec. Prox CCA 103/26 cm/sec. Mid CCA 146/34 cm/sec. Mid CCA 90/26 cm/sec. Dist CCA 83/19 cm/sec. Dist CCA 94/31 cm/sec. Prox ICA 115/29 cm/sec. Prox ICA 46/19 cm/sec. Mid ICA 64/27 cm/sec. Mid ICA 64/29 cm/sec. Dist ICA 82/22 cm/sec. Dist ICA 41/15 cm/sec. Rt. ICA/CCA = 0.8. Lt. ICA/CCA = 0.7. Prox ECA 100/19 cm/sec. Prox ECA 84/17 cm/sec. Rt. Vert. 37/13 cm/sec. Lt. Vert. 36/12 cm/sec. Right Extracranial There is intimal thickening but no significant atherosclerotic plaque noted in the right common carotid artery. There is intimal thickening but no significant atherosclerotic plaque noted in the right internal carotid artery. There is no significant atherosclerotic plaque noted in the right external carotid artery. Antegrade flow is noted in the right vertebral artery. Left Extracranial There is heterogeneous, irregular atherosclerotic plaque noted in the left common carotid artery. There is heterogeneous, irregular atherosclerotic plaque noted in the left internal carotid artery. There is no significant atherosclerotic plaque noted in the left external carotid artery. Antegrade flow is noted in the left vertebral artery. Procedure Carotid Duplex [id number]. This is a Carotid Duplex examination using B-mode, color flow and specral Doppler. Exam performed in department. VL/Carotid Duplex Ultrasound Interpretation Summary Normal right extracranial internal carotid. Mild (<50%) stenosis left extracranial internal carotid. Patent and antegrade vertebrals bilaterally. Ordering Physician: Dudley Gan Referring Physician: Elliot Kwok Performed By: Cheryl Gan, RDCS, RVT
== END | disposition home or self-care (01) ==
PROVIDERS: PCP Family Medicine; Referring Provider Nurse Practitioner Family; Visit Provider Nurse Practitioner Family
DX: I65.22 Occlusion and stenosis of left carotid artery (principal); E66.01 Morbid (severe) obesity due to excess calories; E78.00 Pure hypercholesterolemia, unspecified; R52 Pain, unspecified
CPT/HCPCS: 93880